=== PATIENT | male | born 1970 | race Caucasian/White ===

== ENCOUNTER → 2019-08-31 06:01 | Day surgery (SDC) | payer OTHER ==
--- NOTE | 2019-08-20 06:18 | HP ---
CC: Dr. Sargent * PREOPERATIVE HISTORY AND PHYSICAL: DATE OF ADMISSION/SURGERY: 08/31/19 This patient is scheduled for same-day surgery admission by Dr. Aggarwal on Saturday , 08/31/19. DATE OF PREOPERATIVE HISTORY AND PHYSICAL EXAMINATION: 08/18/19. ATTENDING SURGEON: Dr. Omar Aggarwal * (dictated by Zara Choi NP). CHIEF COMPLAINT: Incisional hernia, right mid abdomen. HISTORY OF PRESENT ILLNESS: The patient is a 48-year-old male recently evaluated by Dr. Aggarwal for an incisional hernia in the right mid abdomen after loop ileostomy, status post colectomy for diverticular disease at [facility], October 2017. The patient states that the incisional hernia has been steadily increasing in size and he has to manually reduce it and is more bothersome with activity. He denies any signs or symptoms to suggest incarceration or strangulation. Dr. Aggarwal examined the patient and notes a right mid abdominal incisional hernia at the site of his previous ileostomy that is approximately 3 to [address] Aggarwal reviewed the findings with the patient and has recommended robotic incisional hernia repair ( right mid abdomen) with mesh as a same-day surgery procedure under general anesthesia. Dr. Aggarwal described the nature of the surgery, the rationale for the surgery, the relevant risks, benefits and alternatives and today I reviewed the expected postoperative care and recovery. The patient has had a chance to ask questions and stated that he understands the information and is satisfied with the answers given to his questions. He will sign surgical consent on the day of surgery. PAST MEDICAL HISTORY: Significant for type 2 diabetes mellitus, diverticular disease, hypertension, hypercholesterolemia, obesity, and urethral stricture. PAST SURGICAL HISTORY: Laparoscopic colectomy with loop ileostomy for diverticular disease in October 2017 at [facility] and urethral dilatation of stricture by Dr. Wayne. MEDICATIONS: 1. Propranolol ER 80 mg p.o. daily. 2. Fenofibrate 48 mg p.o. daily. 3. Losartan potassium/hydrochlorothiazide 100/25 mg p.o. daily. 4. Zetia 10 mg p.o. daily. 5. Aspirin 81 mg p.o. daily, which he will hold 5 days preoperatively. 6. Omeprazole 20 mg p.o. daily. 7. Multivitamins 1 tablet p.o. daily. 8. Metformin 500 mg 1 tablet p.o. b.i.d. and he will hold the evening dose the day before surgery and the morning dose the day of surgery. 9. Vitamin D 2000 units daily. 10. Glipizide 10 mg 2 tablets daily. 11. Trulicity 1.5 mg per 0.5 mL inject 1 dose subcutaneously weekly. 12. Cialis 10 mg 1 tablet p.r.n. ALLERGIES: STATINS caused some type of unspecified reaction. FAMILY HISTORY: No known anesthesia complications, bleeding tendencies, or clotting disorders. Mother with a history of breast and ovarian cancer. 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 He is a nonsmoker and drinks 2 to 3 alcoholic beverages per week and denies the use of other substances. REVIEW OF SYSTEMS: Constitutional: No fevers, chills, excessive fatigue, or weight loss. General: No previous anesthesia complications, no history of deep vein thrombosis or pulmonary embolism. No bleeding tendencies or blood transfusions. Endocrine: Type 2 diabetes. Fingersticks at home ranged between 150 to 160, most recent A1c is around 7 per the patient. No thyroid disease. Respiratory: No dyspnea on exertion. No chronic cough. Cardiovascular: No anginal chest pain or palpitations. Gastrointestinal: No nausea, vomiting, diarrhea, GI bleeding, constipation, or change in bowel habits. Genitourinary: No dysuria. Musculoskeletal: Normal strength and tone. Integumentary: No chronic rashes or skin changes. Neurologic: No headache, blurred vision, areas of focal weakness or numbness. Psychiatric: No reported anxiety, depression or insomnia. PHYSICAL EXAMINATION GENERAL SURVEY: The patient is a 48-year-old obese male, well developed, in no acute distress. VITAL SIGNS: Height 68.5 inches, weight 232 pounds, body mass index 34.8. Blood pressure 140/90, pulse 76 and regular, respiratory rate 16, temperature 97.1 tympanic. HEENT: Benign. NECK: Supple. No cervical lymphadenopathy, no thyromegaly. BACK: No CVA tenderness. LUNGS: Breath sounds bilaterally clear and equal. HEART: Regular rate and rhythm. No murmurs or rubs appreciated. ABDOMEN: Obese. Active bowel sounds. Soft, nontender throughout, nondistended. Palpation reveals a right mid abdominal incisional hernia at the site of the previous ileostomy. The defect is approximately 3 to 4 cm in diameter; no palpable masses, well healed trocar scars. No obvious organomegaly. No skin fold rashes. GENITALIA: Exam is deferred. RECTAL: Exam is deferred. EXTREMITIES: Warm without edema or skin ulceration. NEUROLOGIC: Alert and oriented x3, cooperative. Steady gait. SKIN: Warm, dry, intact. IMPRESSION: Incisional hernia, right mid abdomen. PLAN: Same-day surgery admission to Dr. Aggarwal's service on 08/31/19, for robotic repair of incisional hernia at the right mid abdomen with mesh. DENISE CHOI, STUDENT SUCCESS COUNSELOR [id number]/[facility] #: [id number] MTDNidia
[~2019-08-31 06:01] MED LIST: Buffered Lidocaine 1% SYRIN* 1 ML/SYRINGE INTRADERM ONE; Bupivacaine 0.5%* 50 ML MDV VIAL ONE; Insulin REGULAR(*) 1 UNITS UNIT ONE; Lactated Ringers 1000 ML Bag* 1,000 ML IV SCH; Midazolam* 1 MG/ML 5 ML VIAL (5 MG) ONE; Propofol* 10 MG/ML 20 ML BTL ONE; Rocuronium* 10 MG/ML VIAL ONE; ceFAZolin 2 GM in NS PREMIX(*) 0 GM/0 ML BAG IVPB ONE; fentaNYL* 50 MCG/ML 2 ML VIAL (100 MCG VIAL) ONE
[2019-08-31 06:57] VITALS: BP 154/91
== END | disposition home or self-care (01) ==
LOC: SP 06:01 → OR 06:01
PROVIDERS: ATTEND Surgery
DX: Z53.8 Procedure and treatment not carried out for other reasons (principal)
CPT/HCPCS: J0690; J2250; J2704; J3010; J3490